=== PATIENT | female | born 1965 | race Caucasian/White ===

== ENCOUNTER 2017-02-11 07:17 | Emergency (ER) | payer OTHER ==
[~2017-02-11] VITALS: Ht 170.2 cm; Wt 65.0 kg
[~2017-02-11 07:17] MED LIST: KEFLEX500 MG PO; MOTRIN800 MG PO; NAPROSYN500 MG PO; PERCOCET 5/31 TABLET PO
[2017-02-11 09:04] VITALS: BP 153/91
[2017-02-11] MEDS ORDERED: PEPCID20 MG PO (09:04)
[2017-02-11] MEDS ORDERED: BENADRYL25 MG PO (09:04)
== END 2017-02-11 09:15 | disposition home or self-care (01) ==
LOC: EME 07:17
DX: T78.40XA Allergy, unspecified, initial encounter (principal); H57.8 Other specified disorders of eye and adnexa; R20.2 Paresthesia of skin; L53.9 Erythematous condition, unspecified; F17.200 Nicotine dependence, unspecified, uncomplicated
CPT/HCPCS: 99281; 99283; J1100